=== PATIENT | male | born 1960 | race Caucasian/White ===

== ENCOUNTER 2018-12-11 07:22 | Inpatient (IN) | payer MEDICAID ==
[2018-12-11] MEDS ORDERED: NORMAL SALINE 1000 ML 1,000 ML IV ONE (07:24)
[2018-12-11] MEDS ORDERED: ONDANSETRON HCL INJ/PF 4 MG/2 ML SDV IV ONE (07:25)
--- NOTE | 2018-12-11 07:27 | ER Document Report ---
ED General - General Stated Complaint: NAUSEA/VOMITING Time Seen by Provider: 12/11/18 07:23 Notes: Patient is a 58-year-old male with COPD that presents to the emergency department for chief complaint of cough, shortness of breath, nausea, vomiting and diarrhea. Patient reports his been having a cough for over a month, but has become progressively worse, he sometimes coughs so hard he passes out. He does have COPD, uses inhalers, has not been seen about the cough recently. He also reports that he is been having nausea, vomiting diarrhea recently as well, that started around 2 AM this morning. He states that he had some chest pain associated with the vomiting, but that is now resolved. Denies having any chest pain at this time. He reports having history of CAD, and COPD is noted. He is also complaining of some abdominal cramping, which he rates the pain as a 2 out of 10 at this time, constant and aching in nature. Denies having any urinary symptoms such as dysuria or hematuria. Past Medical History: COPD, hypertension, CAD Past Surgical History: PCI with stenting x1 Social History: Former smoker, denies current alcohol or drug use Family History: Reviewed and noncontributory for presenting illness Allergies: Reviewed, see documented allergy list. REVIEW OF SYSTEMS: Other than noted above, the 12 point review of systems was reviewed with the patient and were negative, all pertinent findings are included in the HPI. PHYSICAL EXAMINATION: Vital signs reviewed, nursing noted reviewed. GENERAL: Patient in mild distress, and appears uncomfortable HEAD: Atraumatic, normocephalic. EYES: Eyes appear normal, extraocular movements intact, sclera anicteric, conjunctiva are normal. ENT: nares patent, oropharynx clear without exudates. Moist mucous membranes. NECK: Normal range of motion, supple without lymphadenopathy LUNGS: Lung sounds severely diminished, with expiratory wheezing noted bilaterally. HEART: Heart rate tachycardic, regular rhythm ABDOMEN: Soft, diffuse mild abdominal tenderness with palpation, normoactive amairani wel sounds. No rebound, guarding, or rigidity. No masses appreciated. EXTREMITIES: Nontender, good range of motion, no pitting or edema. NEUROLOGICAL: No focal neurological deficits. Moves all extremities spontaneously Motor and sensory grossly intact on exam. PSYCH: Normal mood, normal affect. SKIN: Warm, Dry, normal turgor, no rashes or lesions noted on exposed skin - Related Data Allergies/Adverse Reactions: No Known Allergies Allergy (Unverified 12/11/18 07:47) Past Medical History - Social History Smoking Status: Former Smoker Family History: Reviewed & Not Pertinent Pulmonary Medical History: Reports: Hx COPD Physical Exam - Vital signs Vitals: Temp Pulse Resp BP 98.3 F 113 H 14 133/93 H 12/11/18 07:47 12/11/18 07:47 12/11/18 07:47 12/11/18 07:47 Course - Re-evaluation Re-evalutation: Patient seen and examined vital signs reviewed. Laboratory data and imaging were ordered as appropriate for the patient's presenting symptoms and complaint, with consideration of any critical or life threatening conditions that may be associated with their obtained history and exam as noted above. Patient was treated with IV steroid, DuoNeb breathing treatments, is also given Zofran for nausea and IV fluids Results were reviewed when available and demonstrated leukocytosis, and hemoconcentration, possibly secondary to dehydration, patient's lactate was 2.2, he was complained of some abdominal pain as well, CT of the abdomen and pelvis was ordered and was negative for any acute process. The patient was re-evaluated and was still having some hard time breathing, his wheezing was still significant, I ordered IV magnesium, and will place the patient on BiPAP, he was breathing rather quickly, and was complaining of chest pain, similar to when he states had chest pain when he had a stent placed. His troponin was negative, but I did order an ABG, will have him started on BiPAP, and repeat troponin ordered. Patient was improved on BiPAP, heart rate was coming down, respirations improved, patient seemed to be more comfortable. Evaluation was most consistent with acute exacerbation of COPD, nausea vomiting diarrhea, chest pain, nonspecific Results were discussed with the patient at this point after careful consideration I feel that that patient should be admitted to the hospital. This was discussed with the patient that it is in the best interest for their care to be admitted for further evaluation and management. Patient agreed with this fei n of care. A call was placed to the admitted physician, Tommie King CNP who graciously accepted the patient onto their service. *Note is created using voice recognition software and may contain spelling, syntax or grammatical errors. Laboratory 12/11/18 12/11/18 12/11/18 07:35 07:35 07:35 WBC 17.1 H RBC 6.95 H Hgb 20.5 H* Hct 58.9 H MCV 85 MCH 29.4 MCHC 34.7 RDW 13.6 Plt Count 232 Seg Neutrophils % 81.2 H Lymphocytes % 8.8 L Monocytes % 8.7 Eosinophils % 1.0 Basophils % 0.3 Absolute Neutrophils 13.9 H Absolute Lymphocytes 1.5 Absolute Monocytes 1.5 H Absolute Eosinophils 0.2 Absolute Basophils 0.1 Sodium 138.7 Potassium 4.1 Chloride 107 Carbon Dioxide 20 L Anion Gap 12 BUN 19 Creatinine 1.18 Est GFR ( Amer) > 60 Est GFR (Non-Af Amer) > 60 Glucose 158 H Lactic Acid Calcium 9.7 Total Bilirubin 1.0 Direct Bilirubin 0.3 Neonat Total Bilirubin Not Reportable Neonat Direct Bilirubin Not Reportable Neonat Indirect Bili Not Reportable AST 25 ALT 28 Alkaline Phosphatase 54 Troponin I < 0.012 Total Protein 7.0 Albumin 4.2 Lipase 58.6 Urine Color Urine Appearance Urine pH Ur Specific [place] Urine Protein Urine Glucose (UA) Urine Ketones Urine Blood Urine Nitrite Urine Bilirubin Urine Urobilinogen Ur Leukocyte Esterase Urine WBC (Auto) Urine RBC (Auto) U Hyaline Cast (Auto) Squamous Epi Cells Auto Urine Mucus (Auto) Urine Ascorbic Acid 12/11/18 12/11/18 07:35 09:20 WBC RBC Hgb Hct MCV MCH MCHC RDW Plt Count Seg Neutrophils % Lymphocytes % Monocytes % Eosinophils % Basophils % Absolute Neutrophils Absolute Lymphocytes Absolute Monocytes Absolute Eosinophils Absolute Basophils Sodium Potassium Chloride Carbon Dioxide Anion Gap BUN Creatinine Est GFR ( Amer) Est GFR (Non-Af Amer) Glucose Lactic Acid 2.2 H Calcium Total Bilirubin Direct Bilirubin Neonat Total Bilirubin Neonat Direct Bilirubin Neonat Indirect Bili AST ALT Alkaline Phosphatase Troponin I Total Protein Albumin Lipase Urine Color YELLOW Urine Appearance CLEAR Urine pH 5.0 Ur Specific [place] 1.049 Urine Protein 30 H Urine Glucose (UA) NEGATIVE Urine Ketones 20 H Urine Blood NEGATIVE Urine Nitrite NEGATIVE Urine Bilirubin NEGATIVE Urine Urobilinogen NEGATIVE Ur Leukocyte Esterase NEGATIVE Urine WBC (Auto) 2 Urine RBC (Auto) 1 U Hyaline Cast (Auto) 1 Squamous Epi Cells Auto <1 Urine Mucus (Auto) MOD Urine Ascorbic Acid NEGATIVE Chest X-Ray 12/11/18 07:25 IMPRESSION: COPD. NO ACUTE RADIOGRAPHIC FINDING IN THE CHEST. Abdomen/Pelvis CT 12/11/18 08:30 IMPRESSION: NO SIGNIFICANT OR ACUTE FINDING IN THE ABDOMEN OR PELVIS ON CT SCAN WITH IV CONTRAST. - Vital Signs Vital signs: Temp Pulse Resp BP Pulse Ox 98.3 F 113 H 14 133/93 H 12/11/18 07:47 12/11/18 07:47 12/11/18 07:47 12/11/18 07:47 - Laboratory Result Diagrams: 12/11/18 07:35 12/11/18 07:35 Laboratory results interpreted by me: 12/11/18 12/11/18 12/11/18 07:35 07:35 07:35 WBC 17.1 H RBC 6.95 H Hgb 20.5 H* Hct 58.9 H Seg Neutrophils % 81.2 H Lymphocytes % 8.8 L Absolute Neutrophils 13.9 H Absolute Monocytes 1.5 H Carbonic Acid ABG pCO2 ABG pO2 ABG Total CO2 ABG O2 Saturation Carbon Dioxide 20 L Glucose 158 H Lactic Acid 2.2 H Urine Protein Urine Ketones 12/11/18 12/11/18 09:20 11:54 WBC RBC Hgb Hct Seg Neutrophils % Lymphocytes % Absolute Neutrophils Absolute Monocytes Carbonic Acid 1.04 L ABG pCO2 34.7 L ABG pO2 47.0 L ABG Total CO2 22.3 L ABG O2 Saturation 83.5 L Carbon Dioxide Glucose Lactic Acid Urine Protein 30 H Urine Ketones 20 H - EKG Interpretation by Me Additional EKG results interpreted by me: EKG demonstrates sinus tachycardia with a ventricular rate of 170 bpm, normal axis, normal intervals, no ST elevation noted, this is compared with prior EKG from 02/20/2013, without significant change. Critical Care Note - Critical Care Note Total time excluding time spent on procedures (mins): 45 Comments: Critical care time 45 minutes exclusive from separate billable procedures for a patient requiring complex medical decision making, and high potential for clinical deterioration. In a patient presenting with respiratory distress, requiring BiPAP, close monitoring and frequent re-evaluations and admission to the hospital. Time spent obtaining history from patient or surrogate, discussions with consultants, development of treatment plan with patient or surrogate, evaluation of patient's response to treatment, examination of patient, ordering and performing treatments and interventions, ordering and review of laboratory studies, re-evaluation of patient's condition, ordering and review of radiographic studies and review of old charts Discharge - Discharge Clinical Impression: Acute exacerbation of chronic obstructive pulmonary disease (COPD), Dehydration, Sinus tachycardia, Elevated lactic acid level Nausea & vomiting Qualifiers: Vomiting type: unspecified Vomiting Intractability: non-intractable Qualified Code(s): R11.2 - Nausea with vomiting, unspecified Diarrhea Qualifiers: Diarrhea type: unspecified type Qualified Code(s): R19.7 - Diarrhea, unspecified Leukocytosis Qualifiers: Leukocytosis type: unspecified Qualified Code(s): D72.829 - Elevated white blood cell count, unspecified Condition: Stable Disposition: ADMITTED INPATIENT Admitting Provider: Tommie King [employer] DEVELOPER Unit Admitted: [facility]
[2018-12-11] MEDS ORDERED: IPRATROPIUM/ALBUTEROL 0.5-2.5 MG/3 ML AMPUL NEB ONE (07:36)
[2018-12-11] MEDS ORDERED: METHYLPREDNISOLONE INJ 125 MG/2 ML SDV IV ONE (07:39)
[2018-12-11 08:07] LABS: ABSOLUTE BASOPHILS # (AUTO) 0.1 10^3/uL (0.0-0.2); ABSOLUTE EOSINOPHILS # (AUTO) 0.2 10^3/uL (0.0-0.6); ABSOLUTE LYMPHOCYTES (AUTO) 1.5 10^3/uL (0.5-4.7); ABSOLUTE MONOCYTES (AUTO) 1.5 10^3/uL (0.1-1.4); ABSOLUTE NEUT (AUTO) 13.9 10^3/uL (1.7-8.2); BASOPHILS % (AUTO) 0.3 % (0-2); LYMPHOCYTES % (AUTO) 8.8 % (13-45); MEAN CORPUSCULAR HEMOGLOBIN 29.4 pg (27.0-33.4); MEAN CORPUSCULAR HGB CONC 34.7 g/dL (32.0-36.0); MEAN CORPUSCULAR VOLUME 85 fl (80-97); MONOCYTES % (AUTO) 8.7 % (3-13); PLATELET COUNT 232 10^3/uL (150-450); RED BLOOD COUNT 6.95 10^6/uL (4.35-5.55); RED CELL DISTRIBUTION WIDTH 13.6 % (11.5-14.0); SEGMENTED NEUTROPHILS % (AUTO) 81.2 % (42-78); TOTAL CELLS COUNTED % (AUTO) 100 %; WHITE BLOOD COUNT 17.1 10^3/uL (4.0-10.5)
[2018-12-11 08:18] LABS: ALANINE AMINOTRANSFERASE 28 U/L (21-72); ALBUMIN 4.2 g/dL (3.5-5.0); ALKALINE PHOSPHATASE 54 U/L (38-126); ANION GAP 12 (5-19); ASPARTATE AMINO TRANSFERASE 25 U/L (17-59); BILIRUBIN,DIRECT 0.3 mg/dL (0.0-0.4); BLOOD UREA NITROGEN 19 mg/dL (7-20); CALCIUM 9.7 mg/dL (8.4-10.2); CARBON DIOXIDE 20 mmol/L (22-30); CHLORIDE 107 mmol/L (98-107); GLUCOSE 158 mg/dL (75-110); LIPASE 58.6 U/L (23-300); POTASSIUM 4.1 mmol/L (3.6-5.0); SODIUM 138.7 mmol/L (137-145)
[2018-12-11 08:25] LABS: HEMATOCRIT 58.9 % (37.9-51.0)
[2018-12-11 08:26] LABS: HEMOGLOBIN 20.5 g/dL (13.5-17.0)
[2018-12-11] MEDS ORDERED: RINGERS SOLUTION,LACTATED 1,000 ML IV ONE (08:31)
--- NOTE | 2018-12-11 08:39 | RADIOLOGY REPORT (SQ) ---
EXAM DESCRIPTION: CHEST SINGLE VIEW COMPLETED DATE/TIME: 12/11/2018 8:13 am REASON FOR STUDY: vomiting COMPARISON: None. NUMBER OF VIEWS: One view. TECHNIQUE: Single frontal radiographic view of the chest acquired. LIMITATIONS: None. FINDINGS: LUNGS AND PLEURA: No opacities, masses or pneumothorax. No pleural effusion. Attenuated bl ood vessels and flattened meek-diaphragms. MEDIASTINUM AND HILAR STRUCTURES: No masses. Contour normal. HEART AND VASCULAR STRUCTURES: Heart normal in size. Normal vasculature. BONES: No acute findings. HARDWARE: None in the chest. OTHER: No other significant finding. IMPRESSION: COPD. NO ACUTE RADIOGRAPHIC FINDING IN THE CHEST. TECHNICAL DOCUMENTATION: JOB ID: [id number] [employer]- All Rights Reserved Reading location - IP/workstation name: [email or web address]
--- NOTE | 2018-12-11 09:21 | RADIOLOGY REPORT (SQ) ---
EXAM DESCRIPTION: CT ABD/PELVIS WITH IV ONLY COMPLETED DATE/TIME: 12/11/2018 9:08 am REASON FOR STUDY: diffuse abdominal pain, vomiting COMPARISON: None. TECHNIQUE: CT scan of the abdomen and pelvis performed using helical scanning technique with dynamic intravenous contrast injection. No oral contrast. Images reviewed with lung, soft tissue, and bone windows. Reconstructed coronal and sagittal MPR images reviewed. Delayed images for evaluation of the urinary system also acquired. All images stored on PACS. All CT scanners at this facility use dose modulation, iterative reconstruction, and/or weight based d osing when appropriate to reduce radiation dose to as low as reasonably achievable (ALARA). [facility]: Dose Right [facility]: CareDose [facility]: Dose Right [facility]: Teradose 4D [facility]: [employer] CONTRAST TYPE AND DOSE: contrast/concentration: Isovue 350.00 mg/ml; Total Contrast Delivered: 100.0 ml; Total Saline Delivered: 72.0 ml RENAL FUNCTION: GFR > 60. RADIATION DOSE: CT Rad equipment meets quality standard of care and radiation dose reduction techniq ues were employed. CTDIvol: 10.4 - 14.7 mGy. DLP: 1462 mGy-cm.. LIMITATIONS: None. FINDINGS: LOWER CHEST: No significant findings. No nodules or infiltrates. LIVER: Normal size. No masses. No dilated ducts. SPLEEN: Normal size. No focal lesions. PANCREAS: No masses. No significant calcifications. No adjacent inflammation or peripancreatic fluid collections. Pancreatic duct not dilated. GALLBLADDER: No identified stones by CT criteria. No inflammatory changes to suggest cholecystitis. ADRENAL GLANDS: No significant masses or asymmetry. RIGHT KIDNEY AND URETER: No solid masses. No significant calcifications. No hydronephrosis or hyd roureter. LEFT KIDNEY AND URETER: No solid masses. No significant calcifications. No hydronephrosis or hydr oureter. AORTA AND VESSELS: No aneurysm. No dissection. Renal arteries, SMA, celiac without stenosis. RETROPERITONEUM: No retroperitoneal adenopathy, hemorrhage or masses. BOWEL AND PERITONEAL CAVITY: No masses or inflammatory changes. No free fluid or peritoneal masses. APPENDIX: Normal. PELVIS: No mass. No free fluid. Normal bladder. ABDOMINAL WALL: No masses. No hernias. BONES: No significant or acute findings. OTHER: No other significant finding. IMPRESSION: NO SIGNIFICANT OR ACUTE FINDING IN THE ABDOMEN OR PELVIS ON CT SCAN WITH IV CONTRAST. TECHNICAL DOCUMENTATION: JOB ID: [id number] Quality ID # [id number]: Final reports with documentation of one or more dose reduction techniques (e.g., Au tomated exposure control, adjustment of the mA and/or kV according to patient size, use of iterative reconstruction technique) 2010 [employer]- All Rights Reserved Reading location - IP/workstation name: [email or web address]
--- NOTE | 2018-12-11 09:42 | EKG REPORT ---
SEVERITY:- OTHERWISE NORMAL ECG - SINUS TACHYCARDIA : Confirmed by: Trent Badillo MD 11-Dec-2018 09:41:50
[2018-12-11 09:56] LABS: APPEARANCE,URINE CLEAR; BILIRUBIN,URINE NEGATIVE (NEGATIVE); COLOR,URINE YELLOW; GLUCOSE, URINE NEGATIVE (NEGATIVE); KETONES,URINE 20 mg/dL (NEGATIVE); LEUKOCYTE ESTERASE,URINE NEGATIVE (NEGATIVE); NITRITE,URINE NEGATIVE (NEGATIVE); PROTEIN,URINE 30 mg/dL (NEGATIVE); URINE SPECIFIC GRAVITY 1.049; UROBILINOGEN,URINE NEGATIVE mg/dL (<2.0)
[2018-12-11] MEDS: MAGNESIUM SULFATE/D5W 1 GM/100 ML RTUPB IV SCH ×2 (10:46→11:46)
[2018-12-11] MEDS ORDERED: ACETAMINOPHEN 325 MG TABLET PO PRN (11:42)
[2018-12-11] MEDS ORDERED: ALBUTEROL SULFATE 0.083% NEB 2.5 MG/3 ML AMPUL NEB PRN (11:45)
[2018-12-11 12:20] LABS: ARTERIAL BLOOD BASE EXCESS -2.6 mmol/L; ARTERIAL BLOOD H2CO3 1.04 mmol/L (1.05-1.35); ARTERIAL BLOOD HCO3 21.2 mmol/L (20-24); ARTERIAL BLOOD O2 SATURATION 83.5 % (94-98); ARTERIAL BLOOD PCO2 34.7 mmHg (35-45); ARTERIAL BLOOD TOTAL CO2 22.3 mmol/L (23-27)
[2018-12-11 12:23] LABS: ARTERIAL BLOOD FIO2 BI-PAP
[2018-12-11] MEDS ORDERED: DOXYCYCLINE HYCLATE 100 MG in DEXTROSE 5%-WATER 250 ML IV SCH (12:24)
[2018-12-11] MEDS ORDERED: GUAIFENESIN 600 MG TABLET.SA PO ONE (12:24)
[2018-12-11] MEDS ORDERED: CEFTRIAXONE 1 GM/D5W RTU 1 GM/50 ML RTUPB IV SCH (12:30)
[2018-12-11] MEDS: HEPARIN SOD (PORCINE) 5,000 UNIT/ML 1 ML SYRINGE SUBCUT SCH ×2 (13:07→21:19)
--- NOTE | 2018-12-11 13:07 | PDOC H&P ---
History of Present Illness Admission Date/PCP: 12/11/18 12:07 Branden Blackmon Patient complains of: Shortness of breath, nausea, vomiting History of Present Illness: SHERIF CARRILLO is a 58 year old male with a past medical history of non-oxygen dependent chronic obstructive pulmonary disease and tobacco dependency. The patient presented to the emergency department with a chief complaint of shortness of breath, nausea, vomiting and diarrhea. Patient reports his been having a cough for over a month, but has become progressively worse, he sometimes coughs so hard he passes out. The patient uses inhalers which has not seemed to help the cough recently. The patient even stopped smoking 2 weeks ago cold turkey because of his concerns with his shortness of breath. He also reports that he is been having nausea, vomiting diarrhea recently as well, that started around 2 AM this morning. Denies having any chest pain at this time. He reports having history of CAD, and COPD is noted. Denies having any urinary symptoms such as dysuria or hematuria. While in the emergency department the patient was found to be increasingly tachypneic and was wheezing and was placed on a BiPAP. The patient was given the below medications. And was referred to the hospitalist for admission and management. 12/11/18 07:24 Normal Saline 1000 ml [NaCl 0.9% 1000 ml IV Soln] 1,000 ml IV BOLUS 12/11/18 07:25 Ondansetron HCl/Pf [Zofran Inj/Pf 4 mg/2 ml Sdv] 4 mg IV NOW ONE 12/11/18 07:36 Ipratropium/Albuterol Sulfate [Duoneb 3 ml Ampul] 9 ml NEB NOW ONE 12/11/18 07:39 Methylprednisolone Sod Succ/Pf [Solu-Medrol Inj/Pf 125 mg/2 ml Sdv] 125 mg IV NOW ONE 12/11/18 08:31 Ringers Solution,Lactated [Lactated Ringers 1000 ml IV Soln] 1,000 ml IV BOLUS Upon my evaluation the patient he was found to be comfortable but did have some expiratory wheezes. Removed the BiPAP while I was in the room and placed the patient on nasal cannula for which he tolerated without issue. Past Medical History Pulmonary Medical History: Reports: Chronic Obstructive Pulmonary Disease (COPD) GI Medical History: Reports: Gastroesophageal Reflux Disease Social History Information Source: Patient Lives with: Alone Smoking Status: Former Smoker - Stop smoking 2 weeks ago after 40 pack years Frequency of Alcohol Use: Heavy - Has a history of heavy alcohol use. Hx Recreational Drug Use: No Hx Prescription Drug Abuse: No - Advance Directive Resuscitation Status: Full Code Surrogate healthcare decision maker:: Mother Family History Family History: Reviewed & Not Pertinent Parental Family History Reviewed: Yes Children Family History Reviewed: Yes Sibling(s) Family History Reviewed.: Yes Medication/Allergy Allergies/Adverse Reactions: No Known Allergies Allergy (Unverified 12/11/18 07:47) Review of Systems Constitutional: PRESENT: fever(s). ABSENT: chills, headache(s), weight gain, weight loss Eyes: ABSENT: visual disturbances Ears: ABSENT: hearing changes Nose, Mouth, and Throat: PRESENT: other - Nasal congestion Cardiovascular: PRESENT: dyspnea on exertion. ABSENT: chest pain, edema, orthropnea, palpitations Respiratory: PRESENT: cough, dyspnea, sputum. ABSENT: hemoptysis Gastrointestinal: PRESENT: abdominal pain, diarrhea, nausea. ABSENT: constipation, hematemesis, hematochezia, vomiting Genitourinary: ABSENT: dysuria, hematuria Musculoskeletal: ABSENT: joint swelling Integumentary: ABSENT: rash, wounds Neurological: PRESENT: syncope - With coughing spells. ABSENT: abnormal gait, abnormal speech, confusion, dizziness, focal weakness Psychiatric: PRESENT: anxiety. ABSENT: depression, homidical ideation, suicidal ideation Endocrine: ABSENT: cold intolerance, heat intolerance, polydipsia, polyuria Hematologic/Lymphatic: ABSENT: easy bleeding, easy bruising Physical Exam Vital Signs: Temp Pulse Resp BP Pulse Ox 98.3 F 113 H 14 133/93 H 12/11/18 07:47 12/11/18 07:47 12/11/18 07:47 12/11/18 07:47 Intake & Output 12/09/18 12/10/18 12/11/18 23:59 23:59 23:59 Intake Total 1100 Balance 1100 Weight 92.986 kg General appearance: PRESENT: no acute distress, well-developed, well-nourished Head exam: PRESENT: atraumatic, normocephalic Eye exam: PRESENT: conjunctiva pink, EOMI, PERRLA. ABSENT: scleral icterus Ear exam: PRESENT: normal external ear exam Mouth exam: PRESENT: moist, tongue midline Neck exam: ABSENT: carotid bruit, JVD, lymphadenopathy, thyromegaly Respiratory exam: PRESENT: clear to auscultation lennox. ABSENT: rales, rhonchi, wheezes Cardiovascular exam: PRESENT: RRR. ABSENT: diastolic murmur, rubs, systolic murmur Pulses: PRESENT: normal dorsalis pedis pul Vascular exam: PRESENT: normal capillary refill GI/Abdominal exam: PRESENT: normal bowel sounds, soft. ABSENT: distended, guarding, mass, organolmegaly, rebound, tenderness Rectal exam: PRESENT: deferred Extremities exam: PRESENT: full ROM. ABSENT: calf tenderness, clubbing, pedal edema Neurological exam: PRESENT: alert, awake, oriented to person, oriented to place, oriented to time, oriented to situation, CN II-XII grossly intact. ABSENT: motor sensory deficit Psychiatric exam: PRESENT: appropriate affect, normal mood. ABSENT: homicidal ideation, suicidal ideation Skin exam: PRESENT: dry, intact, warm. ABSENT: cyanosis, rash Results Laboratory Results: Labs- Last Values WBC 17.1 10^3/uL (4.0-10.5) H 12/11/18 07:35 RBC 6.95 10^6/uL (4.35-5.55) H 12/11/18 07:35 Hgb 20.5 g/dL (13.5-17.0) H* 12/11/18 07:35 Hct 58.9 % (37.9-51.0) H 12/11/18 07:35 MCV 85 fl (80-97) 12/11/18 07:35 MCH 29.4 pg (27.0-33.4) 12/11/18 07:35 MCHC 34.7 g/dL (32.0-36.0) 12/11/18 07:35 RDW 13.6 % (11.5-14.0) 12/11/18 07:35 Plt Count 232 10^3/uL (150-450) 12/11/18 07:35 Seg Neutrophils % 81.2 % (42-78) H 12/11/18 07:35 Lymphocytes % 8.8 % (13-45) L 12/11/18 07:35 Monocytes % 8.7 % (3-13) 12/11/18 07:35 Eosinophils % 1.0 % (0-6) 12/11/18 07:35 Basophils % 0.3 % (0-2) 12/11/18 07:35 Absolute Neutrophils 13.9 10^3/uL (1.7-8.2) H 12/11/18 07:35 Absolute Lymphocytes 1.5 10^3/uL (0.5-4.7) 12/11/18 07:35 Absolute Monocytes 1.5 10^3/uL (0.1-1.4) H 12/11/18 07:35 Absolute Eosinophils 0.2 10^3/uL (0.0-0.6) 12/11/18 07:35 Absolute Basophils 0.1 10^3/uL (0.0-0.2) 12/11/18 07:35 Carbonic Acid 1.04 mmol/L (1.05-1.35) L 12/11/18 11:54 HCO3/H2CO3 Ratio 20:1 12/11/18 11:54 ABG pH 7.40 (7.35-7.45) 12/11/18 11:54 ABG pCO2 34.7 mmHg (35-45) L 12/11/18 11:54 ABG pO2 47.0 mmHg (80-100) L 12/11/18 11:54 ABG HCO3 21.2 mmol/L (20-24) 12/11/18 11:54 ABG Total CO2 22.3 mmol/L (23-27) L 12/11/18 11:54 ABG O2 Saturation 83.5 % (94-98) L 12/11/18 11:54 ABG Base Excess -2.6 mmol/L 12/11/18 11:54 FiO2 BI-PAP 12/11/18 11:54 Sodium 138.7 mmol/L (137-145) 12/11/18 07:35 Potassium 4.1 mmol/L (3.6-5.0) 12/11/18 07:35 Chloride 107 mmol/L (98-107) 12/11/18 07:35 Carbon Dioxide 20 mmol/L (22-30) L 12/11/18 07:35 Anion Gap 12 (5-19) 12/11/18 07:35 BUN 19 mg/dL (7-20) 12/11/18 07:35 Creatinine 1.18 mg/dL (0.52-1.25) 12/11/18 07:35 Est GFR ( Amer) > 60 (>60) 12/11/18 07:35 Est GFR (Non-Af Amer) > 60 (>60) 12/11/18 07:35 Glucose 158 mg/dL (75-110) H 12/11/18 07:35 Lactic Acid 2.2 mmol/L (0.7-2.1) H 12/11/18 07:35 Calcium 9.7 mg/dL (8.4-10.2) 12/11/18 07:35 Total Bilirubin 1.0 mg/dL (0.2-1.3) 12/11/18 07:35 Direct Bilirubin 0.3 mg/dL (0.0-0.4) 12/11/18 07:35 Neonat Total Bilirubin Not Reportable 12/11/18 07:35 Neonat Direct Bilirubin Not Reportable 12/11/18 07:35 Neonat Indirect Bili Not Reportable 12/11/18 07:35 AST 25 U/L (17-59) 12/11/18 07:35 ALT 28 U/L (21-72) 12/11/18 07:35 Alkaline Phosphatase 54 U/L (38-126) 12/11/18 07:35 Troponin I < 0.012 ng/mL 12/11/18 07:35 Total Protein 7.0 g/dL (6.3-8.2) 12/11/18 07:35 Albumin 4.2 g/dL (3.5-5.0) 12/11/18 07:35 Lipase 58.6 U/L (23-300) 12/11/18 07:35 Urine Color YELLOW 12/11/18 09:20 Urine Appearance CLEAR 12/11/18 09:20 Urine pH 5.0 (5.0-9.0) 12/11/18 09:20 Ur Specific [place] 1.049 12/11/18 09:20 Urine Protein 30 mg/dL (NEGATIVE) H 12/11/18 09:20 Urine Glucose (UA) NEGATIVE mg/dL (NEGATIVE) 12/11/18 09:20 Urine Ketones 20 mg/dL (NEGATIVE) H 12/11/18 09:20 Urine Blood NEGATIVE (NEGATIVE) 12/11/18 09:20 Urine Nitrite NEGATIVE (NEGATIVE) 12/11/18 09:20 Urine Bilirubin NEGATIVE (NEGATIVE) 12/11/18 09:20 Urine Urobilinogen NEGATIVE mg/dL (<2.0) 12/11/18 09:20 Ur Leukocyte Esterase NEGATIVE (NEGATIVE) 12/11/18 09:20 Urine WBC (Auto) 2 /HPF 12/11/18 09:20 Urine RBC (Auto) 1 /HPF 12/11/18 09:20 U Hyaline Cast (Auto) 1 /LPF 12/11/18 09:20 Squamous Epi Cells Auto <1 /HPF 12/11/18 09:20 Urine Mucus (Auto) MOD /LPF 12/11/18 09:20 Urine Ascorbic Acid NEGATIVE (NEGATIVE) 12/11/18 09:20 Serum Alcohol < 10 mg/dL (NONE DETECTED) 12/11/18 07:35 Impressions: Chest X-Ray 12/11/18 07:25 IMPRESSION: COPD. NO ACUTE RADIOGRAPHIC FINDING IN THE CHEST. Abdomen/Pelvis CT 12/11/18 08:30 IMPRESSION: NO SIGNIFICANT OR ACUTE FINDING IN THE ABDOMEN OR PELVIS ON CT SCAN WITH IV CONTRAST. Assessment and Plan - Diagnosis (1) Acute exacerbation of chronic obstructive pulmonary disease (COPD) Is this a current diagnosis for this admission?: Yes Plan: Supplemental O2 to keep sats greater than 88%. Will discontinue the BiPAP at this time the patient does not need this. 12/11/18 11:45 Albuterol Sulfate [Ventolin 0.083% Neb 2.5 mg/3 ml Ampul] 2.5 mg NEB RTQ4HP PRN 12/11/18 18:00 Prednisone [Deltasone 20 mg Tablet] 30 mg PO BID 12/11/18 22:00 Montelukast Sodium [Singulair 10 mg Tablet] 10 mg PO QHS (2) Acute sinusitis Qualifiers: Sinusitis location: maxillary Recurrence: non-recurrent Qualified Code(s): J01.00 - Acute maxillary sinusitis, unspecified Is this a current diagnosis for this admission?: Yes (3) Acute bronchitis Qualifiers: Bronchitis organism: unspecified organism Qualified Code(s): J20.9 - Acute bronchitis, unspecified Is this a current diagnosis for this admission?: Yes Plan: Given that the patient has been sick for over a month will go ahead and treat this aggressively with biotics. 12/11/18 22:00 Guaifenesin [Mucinex Sr 600 mg Tablet.sa] 1,200 mg PO Q12 12/11/18 15:00 Azithromycin [Zithromax Inj 500 mg Vial] 500 mg Dextrose 5%-Water [D5w 250 ml IV Soln] 250 ml IV DAILY 12/12/18 10:00 Ceftriaxone Sodium [Rocephin Inj 1000 mg Vial] 1,500 mg Normal Saline [NaCl 0.9% 50 ml IV Soln] 50 ml IV DAILY (4) Allergic rhinitis Qualifiers: Allergic rhinitis trigger: pollen Allergic rhinitis seasonality: seasonal Qualified Code(s): J30.1 - Allergic rhinitis due to pollen Is this a current diagnosis for this admission?: Yes Plan: 12/11/18 13:00 Cetirizine HCl [Zyrtec 10 mg Tablet] 10 mg PO DAILY 12/11/18 15:00 Fluticasone Propionate [Flonase Nasal [place] 50 Mcg/[place] 16 gm] 2 spray NASL Q12 (5) Dehydration Is this a current diagnosis for this admission?: Yes Plan: 12/11/18 12/11/18 12/11/18 07:35 07:35 07:35 Hgb 20.5 H* Carbon Dioxide 20 L Lactic Acid 2.2 H 12/11/18 12:32 Normal Saline 1000 ml [NaCl 0.9% 1000 ml IV Soln] 1,000 ml IV CONTINUOUS 12/12/18 06:00 BASIC METABOLIC PANEL [CHEM] IN AM (1) MAGNESIUM [CHEM] Routine (6) Diarrhea Qualifiers: Diarrhea type: unspecified type Qualified Code(s): R19.7 - Diarrhea, unspecified Is this a current diagnosis for this admission?: Yes Plan: Will treat the patient with probiotic. Will obtain stool studies. CT of the abdomen and pelvis is unremarkable. - Time Time Spent with patient: 35 or more minutes Smoking Cessation Education: 3 to 10 minutes Medications reviewed and adjusted accordingly: Yes Anticipated discharge: Home Within: within 48 hours Disposition: The patient is a full code. Pending patient's symptomatology and diagnostic findings will reevaluate in the a.m. will admit the patient to inpatient telemetry as the patient's expected length of stay will surpass 2 midnights. - Inpatient Certification Based on my medical assessment, after consideration of the patient's comorbidities, presenting symptoms, or acuity I expect that the services needed warrant INPATIENT care.: Yes I certify that my determination is in accordance with my understanding of Medicare's requirements for reasonable and necessary INPATIENT services [42 CFR 412.3e].: Yes Medical Necessity: Failure to Improve With Outpatient Therapy, Need For IV Fluids, Need For Continuous Telemetry Monitoring, Need for Nebulizer Therapy and Monitoring of Response, Need for IV Antibiotics Post Hospital Care: D/C Linen Checker Documentation
[2018-12-11] MEDS: CETIRIZINE 10 MG TABLET PO SCH (13:18)
[2018-12-11 14:39] LABS: HEMATOCRIT 50.6 % (37.9-51.0); MEAN CORPUSCULAR HEMOGLOBIN 29.5 pg (27.0-33.4); MEAN CORPUSCULAR HGB CONC 34.8 g/dL (32.0-36.0); MEAN CORPUSCULAR VOLUME 85 fl (80-97); PLATELET COUNT 149 10^3/uL (150-450); RED BLOOD COUNT 5.98 10^6/uL (4.35-5.55); RED CELL DISTRIBUTION WIDTH 13.6 % (11.5-14.0); WHITE BLOOD COUNT 12.2 10^3/uL (4.0-10.5)
[2018-12-11 14:40] LABS: HEMOGLOBIN 17.6 g/dL (13.5-17.0)
[2018-12-11] MEDS: AZITHROMYCIN 500 MG in DEXTROSE 5%-WATER 250 ML IV SCH (15:14)
[2018-12-11] MEDS: FLUTICASONE NASAL SPRAY 50 MCG/SPRY 120 SPRAY/16 GM NASL SCH ×2 (15:15→21:19)
--- NOTE | 2018-12-11 15:37 | EKG REPORT ---
SEVERITY:- NORMAL ECG - SINUS RHYTHM : Confirmed by: Trent Badillo MD 11-Dec-2018 15:36:31
[2018-12-11] MEDS: LACTOBACILLUS ACIDOPHILUS 250 MG TAB PO SCH (20:09)
[2018-12-11] MEDS: PREDNISONE 20 MG TABLET PO SCH (20:09)
[2018-12-11] MEDS: NORMAL SALINE 1000 ML 1,000 ML IV PRN (20:11)
[2018-12-11] MEDS: DOCUSATE SODIUM 100 MG CAPSULE PO SCH (20:15)
[2018-12-11] MEDS: GUAIFENESIN 600 MG TABLET.SA PO SCH (21:18)
[2018-12-11] MEDS ORDERED: MONTELUKAST SODIUM 10 MG TABLET PO SCH (22:00)
[2018-12-11] MEDS ORDERED: ASPIRIN 325 MG TABLET PO ONE (23:00)
[2018-12-11] MEDS ORDERED: ATORVASTATIN CALCIUM 20 MG TABLET PO ONE (23:00)
[2018-12-11] MEDS ORDERED: NITROGLYCERIN 0.4 MG/TAB 25 TAB/BOTTLE SL PRN (23:13)
[2018-12-12] MEDS: NORMAL SALINE 1000 ML 1,000 ML IV PRN ×2 (04:06→12:29)
[2018-12-12 04:32] LABS: HEMATOCRIT 45.1 % (37.9-51.0); HEMOGLOBIN 15.7 g/dL (13.5-17.0); MEAN CORPUSCULAR HEMOGLOBIN 29.8 pg (27.0-33.4); MEAN CORPUSCULAR HGB CONC 34.9 g/dL (32.0-36.0); MEAN CORPUSCULAR VOLUME 86 fl (80-97); PLATELET COUNT 132 10^3/uL (150-450); RED BLOOD COUNT 5.27 10^6/uL (4.35-5.55); RED CELL DISTRIBUTION WIDTH 13.6 % (11.5-14.0)
[2018-12-12 04:56] LABS: ANION GAP 6 (5-19); BLOOD UREA NITROGEN 17 mg/dL (7-20); CALCIUM 8.4 mg/dL (8.4-10.2); CARBON DIOXIDE 21 mmol/L (22-30); CHLORIDE 110 mmol/L (98-107); GLUCOSE 139 mg/dL (75-110); POTASSIUM 4.6 mmol/L (3.6-5.0); SODIUM 136.9 mmol/L (137-145)
[2018-12-12] MEDS: HEPARIN SOD (PORCINE) 5,000 UNIT/ML 1 ML SYRINGE SUBCUT SCH (05:17)
[2018-12-12] MEDS ORDERED: NORMAL SALINE IV SCH (10:00)
[2018-12-12] MEDS ORDERED: CEFTRIAXONE SODIUM IV SCH (10:00)
[2018-12-12] MEDS ORDERED: ASPIRIN 325 MG TABLET PO SCH (10:00)
[2018-12-12] MEDS ORDERED: CEFTRIAXONE SODIUM 1,000 MG in NORMAL SALINE 50 ML IV SCH (10:00)
[2018-12-12 10:47] LABS: CREATINE KINASE MB 6.66 ng/mL (<4.55); TROPONIN I 1.47 ng/mL
--- NOTE | 2018-12-12 13:30 | Progress Note ---
Provider Note Provider Note: 12/12/2018 1:15 PM came to evaluate the patient. Patient is complaining of midsternal chest pain. Pain scale is 4-5 x 10. Associated shortness of breath. Shortness of breath slightly improved compared to today. Patient said he is told the ER physician that he is having chest pains. He also told him chest pain is persisting. Admission troponin is 0.09 worsened to 0.6 this morning third troponin went up to 1.47 7 EKG was done shows sinus rhythm with borderline prolonged QT interval. Patient is expressing desire to be transferred. I gave him the options of possible cardiac cath here in the hospital but also told him we do not have the capacity to do the stent placements. Patient wants to be transferred to a place where cardiac cath and stent can be done at the same time. DVT prophylaxis heparin 5000 subcu every 8 hours is discontinued and started on Lovenox 90 mg subcu every 12 hours. pt is already on aspirin and atorvastatin. Patient is also nitroglycerin as needed. To start him on IV heparin 5 mg as needed. Call was placed to [facility] there is a waiting list of 24-48 hours. Also called [facility] no beds are available at this point. Consult was placed to [facility] waiting to hear from the accounting bookkeeper.
--- NOTE | 2018-12-12 13:59 | PDOC TRANSFER SUMMARY ---
General Admission Date/PCP: 12/11/18 12:07 Resuscitation Status: Full Code - Transfer Diagnosis (1) Unstable angina Is this a current diagnosis for this admission?: Yes Diagnosis Summary: 12/13/1998 [id number] male with history of coronary artery disease status post stent placement recently had a cardiac cath in [place] and found to have a 50% of occlusion in the LAD came to the emergency room yesterday with complaints of shortness of breath nausea vomiting's and diarrhea. he is also saying he has chest pains midsternal chest pains 4 x 5 this morning associated with shortness of breath. As per him shortness of breath is minimally improved. On gentle pressure over the sternum he denies any worsening of the chest pains he was given the picture of classic chest pain symptoms and is also saying nitro glycerin is relieving the pain. eKG was done stat sinus rhythm. Initial troponin is 0.09-second troponin is 0.631 is 1.472. Because of these findings and called the [facility] discussed the care with the gold miner she thinks patient has unstable angina agreed to take the patient therefore further workup and cardiac catheter. Prior to transfer I discussed the plan of care with the patient he specifically requested me to transfer to a facility with cardiac cath and stent can be done at the same time. Explained to him that cardiac cath can be done here in this hospital patient understood but he requested for transfer anyway. Patient is presently on Lovenox T milligrams subcu every 12 hours, aspirin, atorvastatin, nitroglycerin he was started on IV morphine for pain management. Also placed on oxygen 2 L nasal cannula. emtala forms were signed. (2) Acute exacerbation of chronic obstructive pulmonary disease (COPD) Is this a current diagnosis for this admission?: Yes Diagnosis Summary: 12/12/2018 patient has history of COPD secondary to smoking. Admitted for COPD exacerbation and chest pains. He is receiving IV antibiotic therapy and laser treatments. Chest x-ray is negative for pneumonia. (3) Nausea & vomiting Is this a current diagnosis for this admission?: Yes Diagnosis Summary: 12/12/2018-patient came in with complaints of nausea vomiting's diarrhea with dehydration possibly secondary to gastroenteritis. (4) Hyperlipidemia Is this a current diagnosis for this admission?: No Diagnosis Summary: 12/12/2018 patient is given the history of hyperlipidemia is taking Lipitor at home. But is noncompliant his medications. He was started on atorvastatin here lipid profile is requested for tomorrow. - Transfer Medications Home Medications: No Home Medications 12/11/18 Transfer Medications: Current Medications Acetaminophen (Tylenol 325 Mg Tablet) 650 mg PO Q4HP PRN PRN Reason: FOR HEADACHE OR PAIN Stop: 01/10/19 11:41 Albuterol (Ventolin 0.083% Neb 2.5 Mg/3 Ml Ampul) 2.5 mg NEB RTQ4HP PRN PRN Reason: SHORTNESS OF BREATH Stop: 01/10/19 11:44 Aspirin (Aspirin 325 Mg Tablet) 325 mg PO DAILY MOUNA Stop: 01/11/19 09:59 Atorvastatin Calcium (Lipitor 20 Mg Tablet) 20 mg PO QHS MOUNA Stop: 01/11/19 21:59 Cetirizine HCl (Zyrtec 10 Mg Tablet) 10 mg PO DAILY MOUNA Stop: 01/10/19 12:59 Last Admin: 12/11/18 13:18 Dose: 10 mg Documented by: Docusate Sodium (Colace 100 Mg Capsule) 100 mg PO BID MOUNA Stop: 01/10/19 17:59 Last Admin: 12/11/18 20:15 Dose: Not Given Documented by: Enoxaparin Sodium (Lovenox Inj 100 Mg/1 Ml Disp.Syrin) 90 mg SUBCUT Q12 MOUNA Stop: 01/11/19 12:59 Fluticasone Propionate (Flonase Nasal [place] 50 Mcg/[place] 16 Gm) 2 spray NASL Q12 MOUNA Stop: 01/10/19 14:59 Last Admin: 12/11/18 21:19 Dose: 2 spr Documented by: Guaifenesin (Mucinex Sr 600 Mg Tablet.Sa) 1,200 mg PO Q12 MOUNA Stop: 01/10/19 21:59 Last Admin: 12/11/18 21:18 Dose: 1,200 mg Documented by: Azithromycin 500 mg/ Dextrose 250 mls @ 250 mls/hr IV DAILY MOUNA Stop: 12/18/18 14:59 Last Infusion: 12/11/18 20:15 Dose: Infused Documented by: Sodium Chloride (Nacl 0.9% 1000 Ml Iv Soln) 1,000 mls @ 125 mls/hr IV CONTINUOUS PRN PRN Reason: THIS MED IS NOT "PRN" Stop: 01/10/19 12:31 Last Admin: 12/12/18 12:29 Dose: 125 mls/hr Documented by: Ceftriaxone Sodium 1,000 mg/ (Sodium Chloride) 50 mls @ 100 mls/hr IV DAILY [facility] Stop: 12/19/18 09:59 Lactobacillus Acidophilus (Bacid 250 Mg Tablet) 500 mg PO BID MOUNA Stop: 01/10/19 17:59 Last Admin: 12/11/18 20:09 Dose: 500 mg Documented by: Montelukast Sodium (Singulair 10 Mg Tablet) 10 mg PO QHS MOUNA Stop: 01/10/19 21:59 Last Admin: 12/11/18 21:19 Dose: 10 mg Documented by: Nitroglycerin (Nitrostat 0.4 Mg (1/150 Gr) Tabs 25/Bottle) 1 tab SL Q5MP PRN PRN Reason: CHEST PAIN Prednisone (Deltasone 20 Mg Tablet) 30 mg PO BID MOUNA Stop: 01/10/19 17:59 Last Admin: 12/11/18 20:09 Dose: 30 mg Documented by: Sodium Chloride (Saline Flush 2.5 Ml Monoject Prefil Syrin) 2.5 ml IV Q8 MOUNA Stop: 01/10/19 13:59 Last Admin: 12/12/18 05:14 Dose: Not Given Documented by: - Allergies Allergies/Adverse Reactions: No Known Allergies Allergy (Unverified 12/11/18 07:47) Hospital Course Hospital Course: 58-year-old male with history of coronary artery disease status post stent placement COPD admitted with shortness of breath and chest pains associated nausea vomiting diarrhea. Continue to have the chest pains associated with shortness of breath. EKG was normal. Cardiac enzymes going up with a troponin of 1.472. Discussed the plan with gold miner in [facility] patient was accepted there for possible cardiac cath. Physical Exam Vital Signs: Temp Pulse Resp BP Pulse Ox 98.2 F 85 20 129/69 H 93 12/12/18 07:57 12/12/18 13:04 12/12/18 13:04 12/12/18 07:57 12/12/18 13:04 Intake & Output 12/11/18 12/12/18 12/13/18 06:59 06:59 06:59 Intake Total 3727 1000 Output Total 780 Balance 2947 1000 Weight 90.5 kg General appearance: PRESENT: mild distress Head exam: PRESENT: atraumatic Eye exam: PRESENT: PERRLA Mouth exam: PRESENT: moist, tongue midline Neck exam: ABSENT: carotid bruit, JVD, lymphadenopathy, thyromegaly Respiratory exam: PRESENT: decreased breath sounds, wheezes Cardiovascular exam: PRESENT: tachycardia Pulses: PRESENT: normal dorsalis pedis pul GI/Abdominal exam: PRESENT: normal bowel sounds, soft. ABSENT: distended, guarding, mass, organolmegaly, rebound, tenderness Extremities exam: PRESENT: full ROM. ABSENT: calf tenderness, clubbing, pedal edema Neurological exam: PRESENT: alert, awake, oriented to person, oriented to place, oriented to time, oriented to situation, CN II-XII grossly intact. ABSENT: motor sensory deficit Psychiatric exam: PRESENT: appropriate affect, normal mood. ABSENT: homicidal ideation, suicidal ideation Results Laboratory Results: 12/12/18 04:04 12/12/18 04:04 12/11/18 12/11/18 12/12/18 14:10 14:10 04:04 WBC 12.2 H 10.0 RBC 5.98 H 5.27 Hgb 17.6 H D 15.7 Hct 50.6 45.1 MCV 85 86 MCH 29.5 29.8 MCHC 34.8 34.9 RDW 13.6 13.6 Plt Count 149 L 132 L Sodium Potassium Chloride Carbon Dioxide Anion Gap BUN Creatinine Est GFR ( Amer) Est GFR (Non-Af Amer) Glucose Lactic Acid 1.7 Calcium Magnesium 12/12/18 04:04 WBC RBC Hgb Hct MCV MCH MCHC RDW Plt Count Sodium 136.9 L Potassium 4.6 Chloride 110 H Carbon Dioxide 21 L Anion Gap 6 BUN 17 Creatinine 0.73 Est GFR ( Amer) > 60 Est GFR (Non-Af Amer) > 60 Glucose 139 H Lactic Acid Calcium 8.4 Magnesium 2.4 H 12/11/18 12/11/18 12/11/18 07:35 14:10 21:55 Creatine Kinase CK-MB (CK-2) Troponin I < 0.012 0.097 0.622 12/12/18 12/12/18 09:16 09:16 Creatine Kinase 122 CK-MB (CK-2) 6.66 H Troponin I 1.470 Impressions: Chest X-Ray 12/11/18 07:25 IMPRESSION: COPD. NO ACUTE RADIOGRAPHIC FINDING IN THE CHEST. Abdomen/Pelvis CT 12/11/18 08:30 IMPRESSION: NO SIGNIFICANT OR ACUTE FINDING IN THE ABDOMEN OR PELVIS ON CT SCAN WITH IV CONTRAST. Plan Discharge Plan: Patient is going to be transferred to [facility]. Time Spent: Greater than 30 Minutes
[2018-12-12] MEDS: DOCUSATE SODIUM 100 MG CAPSULE PO SCH (14:18)
[2018-12-12] MEDS: LACTOBACILLUS ACIDOPHILUS 250 MG TAB PO SCH (14:18)
[2018-12-12] MEDS: GUAIFENESIN 600 MG TABLET.SA PO SCH (14:18)
[2018-12-12] MEDS: CETIRIZINE 10 MG TABLET PO SCH (14:19)
[2018-12-12] MEDS: PREDNISONE 20 MG TABLET PO SCH (14:19)
[2018-12-12] MEDS: AZITHROMYCIN 500 MG in DEXTROSE 5%-WATER 250 ML IV SCH (14:28)
[2018-12-12] MEDS ORDERED: ENOXAPARIN SODIUM INJ 100 MG/1 ML DISP.SYRIN SUBCUT SCH (14:30)
[2018-12-12] MEDS: FLUTICASONE NASAL SPRAY 50 MCG/SPRY 120 SPRAY/16 GM NASL SCH (14:45)
[2018-12-12 15:36] LABS: CREATINE KINASE MB 5.81 ng/mL (<4.55)
[2018-12-12 15:43] LABS: TROPONIN I 1.35 ng/mL
[2018-12-12 16:21] VITALS: BP 127/71
--- NOTE | 2018-12-12 20:47 | EKG REPORT ---
SEVERITY:- BORDERLINE ECG - SINUS RHYTHM BORDERLINE PROLONGED QT INTERVAL : Confirmed by: Brenda Mckeon 12-Dec-2018 20:46:21
[2018-12-12] MEDS ORDERED: ATORVASTATIN CALCIUM 20 MG TABLET PO SCH (22:00)
== END 2018-12-12 16:45 | disposition short-term general hospital (02) | DRG 303 ==
LOC: ER 07:22 → EH 12:07 → 5 16:43
PROVIDERS: ADMIT Internal Medicine; ATTEND Internal Medicine
DX: I25.110 Atherosclerotic heart disease of native coronary artery with unstable angina pectoris (principal); J44.1 Chronic obstructive pulmonary disease with (acute) exacerbation; I25.10 Atherosclerotic heart disease of native coronary artery without angina pectoris; E86.0 Dehydration; D72.829 Elevated white blood cell count, unspecified; R19.7 Diarrhea, unspecified; R00.0 Tachycardia, unspecified; F17.200 Nicotine dependence, unspecified, uncomplicated; K21.9 Gastro-esophageal reflux disease without esophagitis; J30.1 Allergic rhinitis due to pollen; E78.5 Hyperlipidemia, unspecified; Z79.899 Other long term (current) drug therapy; Z79.82 Long term (current) use of aspirin; Z95.5 Presence of coronary angioplasty implant and graft
CPT/HCPCS: 36415; 71045; 74177; 80048; 80053; 80307; 81001; 82550; 82553; 82803; 83605; 83690; 83735; 84484; 85025; 85027; 87040; 93005; 93010; 94640; 94667; 94668; 94799; 96361; 96365; 96375; 99285; J0456; J0696; J1644; J2405; J2930; J3475; J3490; J7030; J7060; J7120; J7512; J7620